=== PATIENT | female | born 1930 | race Hispanic/Latino ===

== ENCOUNTER 2016-12-10 09:06 | Outpatient (CLI) | payer MEDICARE, OTHER ==
--- NOTE | 2016-12-11 17:00 | Mammography Report ---
BILATERAL DIGITAL SCREENING MAMMOGRAM with CAD: 12/10/16 09:06:00 CLINICAL: Routine screening. COMPARISON:06/06/15 FINDINGS: The breasts are heterogeneously dense, which may obscure small masses and limit the sensitivity of mammography.A pacemaker obscures a portion of the left upper breast. No mass, architectural distortion or suspicious calcifications. IMPRESSION: No mammographic evidence of malignancy. BI-RADS CATEGORY: 2 - - Benign RECOMMENDATION: Routine mammographic screening in one year. COMMENT: Patient follow-up letters are generated by our [employer] application. The
== END 2016-12-10 09:07 | disposition home or self-care (01) ==
LOC: SPVWC 09:06
PROVIDERS: ATTEND Obstetrics & Gynecology
DX: Z12.31 Encounter for screening mammogram for malignant neoplasm of breast (principal)
CPT/HCPCS: 77067; G0202

== ENCOUNTER 2018-01-08 09:31 | Outpatient (CLI) | payer MEDICARE, OTHER ==
--- NOTE | 2018-01-08 13:55 | Mammography Report ---
BILATERAL DIGITAL SCREENING MAMMOGRAM with CAD: 01/08/18 09:31:00 CLINICAL: Routine screening. COMPARISON:12/10/16 FINDINGS: The breasts are heterogeneously dense, which may obscure small masses.A pacemaker obscures a portion of the upper left breast and also limited positioning on the MLO view. No mass, architectural distortion or suspicious calcifications. IMPRESSION: No mammographic evidence of malignancy. BI-RADS CATEGORY: 1 - - Negative RECOMMENDATION: Routine mammographic screening in one year. COMMENT: Patient follow-up letters are generated by our [employer] application.
== END 2018-01-08 09:32 | disposition home or self-care (01) ==
LOC: SPVWC 09:31
PROVIDERS: ATTEND Obstetrics & Gynecology
DX: Z12.31 Encounter for screening mammogram for malignant neoplasm of breast (principal)
CPT/HCPCS: 77067

== ENCOUNTER 2019-01-18 12:52 | Outpatient (CLI) | payer MEDICARE ==
--- NOTE | 2019-01-18 15:40 | Mammography Report ---
BILATERAL DIGITAL SCREENING MAMMOGRAM with CAD: 01/18/19 12:52:00 CLINICAL: Routine screening. COMPARISON:01/08/18 and 12/10/16 FINDINGS: The breasts are heterogeneously dense, which may obscure small masses.A pacemaker obscures much of the left axilla on the left MLO view. No mass, architectural distortion or suspicious calcifications. IMPRESSION: No mammographic evidence of malignancy. BI-RADS CATEGORY: 1 - - Negative RECOMMENDATION: Routine mammographic screening in one year. COMMENT: Patient follow-up letters are generated by our [employer] application.
== END 2019-01-18 12:53 | disposition home or self-care (01) ==
LOC: SPVWC 12:52
PROVIDERS: ATTEND Obstetrics & Gynecology
DX: Z12.31 Encounter for screening mammogram for malignant neoplasm of breast (principal)
CPT/HCPCS: 77067

== ENCOUNTER 2019-08-16 13:50 | Outpatient (CLI) | payer MEDICARE ==
--- NOTE | 2019-08-16 14:30 | XRay Report ---
THORACIC SPINE, 3 VIEWS INDICATION: THORACIC PAIN. COMPARISON: None. IMPRESSION: Osteopenia is evident. Moderate multilevel degenerative disc narrowing and anterior spu rring is noted in the mid thoracic spine. No compression deformity, malalignment or bone lesion is a ppreciated on x-ray. Signer Name: Rocky Tate Jr, MD Signed: 08/16/2019 2:26 PM Workstation Name: [id number]
== END 2019-08-16 13:51 | disposition home or self-care (01) ==
LOC: SPVIMAG 13:50
PROVIDERS: ATTEND Internal Medicine Rheumatology
DX: M85.88 Other specified disorders of bone density and structure, other site (principal); M51.34 Other intervertebral disc degeneration, thoracic region; M46.04 Spinal enthesopathy, thoracic region
CPT/HCPCS: 72072